=== PATIENT | female | born 1970 | race Caucasian/White ===

== ENCOUNTER 2016-06-18 18:40 | Emergency (ER) | payer BC ==
[~2016-06-18] VITALS: Ht 167.6 cm; Wt 54.2 kg
[~2016-06-18 18:40] MED LIST: IBS MEDICATION PO
[2016-06-18 18:44] VITALS: TEMP 36.3; Ht 167.6 cm; Wt 54.2 kg
[2016-06-18] MEDS ORDERED: CEFTRIAXONE SOD INJ 1 GM ADDVIAL IV STA (18:54)
[2016-06-18] MEDS ORDERED: ONDANSETRON INJ 2 MG/ML 2 ML VIAL IV STA (18:54)
[2016-06-18] MEDS ORDERED: KETOROLAC TROMETHAMINE 30 MG/ML VIAL IV STA (18:54)
[2016-06-18] MEDS ORDERED: SODIUM CHLORIDE 0.9% 1000ML 1,000 ML IV STA (18:54)
[2016-06-18] MEDS ORDERED: HYDROmorphone INJ 1 MG/ML SYR IV STA (18:54)
--- NOTE | 2016-06-18 18:59 | EMERGENCY ROOM VISIT NOTE ---
History Report prepared by Sulaiman: Radhika Rodriguez Under the Supervision of: Dr. Ric Fox M.D. First contact with patient: 18:48 Chief Complaint: FLANK PAIN Stated Complaint: FLANK PAIN, BLOOD IN URINE History of Present Illness The patient is a 45 year old female who presents to the Emergency Room with complaints of worsening right sided flank pain for the past couple of days. She states that today her pain has been constant and dull with occasional sharp pains. She rates her pain as a 6/10 in severity and it is worse with palpation. The patient went to a [id number] today and had a UA which revealed hematuria. She was started on Bactrim this evening and has had 1 dose. She did not take any other medications for her symptoms. She came to the ED for further evaluation. Source of History: patient Onset: a couple of days ago Position: other (right flank) Symptom Intensity: 6/10 Quality: sharp, dull Timing: constant, worsening Modifying Factors (Worsening): other (palpation) Associated Symptoms: + urinary symptoms (hematuria) Review of Systems See HPI for pertinent positives & negatives. A total of 10 systems reviewed and were otherwise negative. Past Medical & Surgical Medical Problems: (1) Interstitial cystitis (2) Stomach problems Family History Cancer Diabetes mellitus Heart disease Hypertension Kidney disease Kidney stones Social History Smoking Status: Former Smoker Marital Status: Housing Status: lives with significant other Occupation Status: employed Current/Historical Medications Scheduled Control Pills ( Control Pills), 1 TAB PO DAILY Levothyroxine Sodium (Synthroid), 88 MCG PO 6XWK Levothyroxine Sodium (Synthroid), 100 MCG PO MONDAYS Ondasetron Odt (Zofran Odt), 4 MG SL Q6H Scheduled PRN Oxycodone/Acetaminophen 5MG/325MG (Percocet 5MG/325MG), 1-2 TAB PO Q4H PRN for Pain Piroxicam (Piroxicam), 1 CAP PO Q4 PRN for Allergies Coded Allergies: Amoxicillin (Unverified Allergy, Severe, COLITIS, 09/18/15) Clavulanic Acid (Verified Allergy, Unknown, COLITIS, 09/18/15) Penicillins (Verified Allergy, Unknown, COLITIS, 09/18/15) Uncoded Allergies: BETALACTAMASEIN (Allergy, Unknown, COLITIS, 05/21/09) Physical Exam Vital Signs Date Time Temp Pulse Resp B/P Pulse Ox O2 Delivery O2 Flow Rate FiO2 06/18/16 20:03 86 16 105/64 06/18/16 19:12 104 18 108/73 97 Room Air 06/18/16 19:12 92 06/18/16 18:44 36.3 107 16 122/83 99 Room Air Physical Exam GENERAL: Patient is a healthy-appearing well-nourished 45 year old female. HEAD: Normocephalic atraumatic EYES: Ocular movements intact pupils equal and react to light OROPHARYNX mucous membranes are moist no exudates present no erythema or edema present NECK: Supple no nuchal rigidity CHEST: Good equal expansion LUNGS: Clear and equal to auscultation CARDIAC: Normal S1 and S2 ABDOMEN: Soft nontender no guarding BACK: Tender to the right lumbosacral area, no CVA tenderness EXTREMITIES: No pain upon palpation normal muscle strength in all groups no clubbing cyanosis or edema NEURO: Patient is following commands is answering questions appropriately. Alert and oriented x3 Cranial Nerves 2-12 grossly intact Medical Decision & Procedures ER Provider Diagnostic Interpretation: Radiology results as stated below per my review and radiologist interpretation: ABDOMEN AND PELVIS CT WITHOUT CONTRAST CT DOSE: 623.80 mGy.cm HISTORY: Flank pain Pt c/o Rt sided flank pain TECHNIQUE: Multiaxial CT images of the abdomen and pelvis were performed without the use of intravenous and oral contrast according to the standard department stone protocol. COMPARISON STUDY: 09/18/2015 FINDINGS: Lung bases are clear. Liver demonstrates a small hemangioma of the right hepatic lobe unchanged from the prior study. Gallbladder is negative for distention. Kidneys negative for calcification. There is no evidence for an obstructing urinary tract calculus. Bladder is midline. Bowel pattern is considered nonobstructive. Visualized components of the appendix are unremarkable. IMPRESSION: No acute process of the abdomen or pelvis Electronically signed by: Ashkan Medina M.D. 06/18/2016 7:54 PM Dictated Date/Time: 06/18/2016 7:47 PM Laboratory Results 06/18/16 19:00 Red Blood Count 4.28, Mean Corpuscular Volume 88.3, Mean Corpuscular Hemoglobin 31.1, Mean Corpuscular Hemoglobin Concent 35.2, Mean Platelet Volume 10.7, Neutrophils (%) (Auto) 63.6, Lymphocytes (%) (Auto) 28.9, Monocytes (%) (Auto) 6.6, Eosinophils (%) (Auto) 0.4, Basophils (%) (Auto) 0.3, Neutrophils # (Auto) 5.90, Lymphocytes # (Auto) 2.68, Monocytes # (Auto) 0.61, Eosinophils # (Auto) 0.04, Basophils # (Auto) 0.03 06/18/16 19:00 Test 06/18/16 19:00 06/18/16 19:15 White Blood Count 9.28 K/uL (4.8-10.8) Red Blood Count 4.28 M/uL (4.2-5.4) Hemoglobin 13.3 g/dL (12.0-16.0) Hematocrit 37.8 % (37-47) Mean Corpuscular Volume 88.3 fL (80-100) Mean Corpuscular Hemoglobin 31.1 pg (25-34) Mean Corpuscular Hemoglobin Concent 35.2 g/dl (32-36) Platelet Count 303 K/uL (130-400) Mean Platelet Volume 10.7 fL (7.4-10.4) Neutrophils (%) (Auto) 63.6 % Lymphocytes (%) (Auto) 28.9 % Monocytes (%) (Auto) 6.6 % Eosinophils (%) (Auto) 0.4 % Basophils (%) (Auto) 0.3 % Neutrophils # (Auto) 5.90 K/uL (1.4-6.5) Lymphocytes # (Auto) 2.68 K/uL (1.2-3.4) Monocytes # (Auto) 0.61 K/uL (0.11-0.59) Eosinophils # (Auto) 0.04 K/uL (0-0.5) Basophils # (Auto) 0.03 K/uL (0-0.2) RDW Standard Deviation 40.7 fL (36.4-46.3) RDW Coefficient of Variation 12.7 % (11.5-14.5) Immature Granulocyte % (Auto) 0.2 % Immature Granulocyte # (Auto) 0.02 K/uL (0.00-0.02) Anion Gap 11.0 mmol/L (3-11) Est Creatinine Clear Calc Drug Dose 68.3 ml/min Estimated GFR () 90.1 Estimated GFR (Non- 77.8 BUN/Creatinine Ratio 17.3 (10-20) Calcium Level 8.4 mg/dl (8.5-10.1) Total Bilirubin 0.5 mg/dl (0.2-1) Direct Bilirubin 0.1 mg/dl (0-0.2) Aspartate Amino Transf (AST/SGOT) 16 U/L (15-37) Alanine Aminotransferase (ALT/SGPT) 21 U/L (12-78) Alkaline Phosphatase 103 U/L (45-117) Total Protein 7.5 gm/dl (6.4-8.2) Albumin 3.8 gm/dl (3.4-5.0) Lipase 206 U/L (73-393) Urine Color YELLOW Urine Appearance CLEAR (CLEAR) Urine pH 6.5 (4.5-7.5) Urine Specific [place] 1.003 (1.000-1.030) Urine Protein NEG (NEG) Urine Glucose (UA) NEG (NEG) Urine Ketones NEG (NEG) Urine Occult Blood 3+ (NEG) Urine Nitrite NEG (NEG) Urine Bilirubin NEG (NEG) Urine Urobilinogen NEG (NEG) Urine Leukocyte Esterase NEG (NEG) Urine WBC (Auto) 1-5 /hpf (0-5) Urine RBC (Auto) >30 /hpf (0-4) Urine Hyaline Casts (Auto) 0 /lpf (0-5) Urine Epithelial Cells (Auto) 10-20 /lpf (0-5) Urine Bacteria (Auto) NEG (NEG) Labs reviewed by ED physician. Medications Administered Medications (Trade) Dose Ordered Sig/Ghassan Route Start Time Stop Time Status Last Admin Dose Admin Sodium Chloride (Nss 1000ml) 1,000 ml @ 999 mls/hr Q1H1M STAT IV 06/18/16 18:54 06/18/16 19:54 DC 06/18/16 19:10 999 MLS/HR Ketorolac Tromethamine (Toradol Inj) 30 mg NOW STAT IV 06/18/16 18:54 06/18/16 18:57 DC 06/18/16 19:09 30 MG Hydromorphone HCl (Dilaudid Inj) 0.5 mg NOW STAT IV 06/18/16 18:54 06/18/16 18:57 DC 06/18/16 19:09 0.5 MG Ondansetron HCl (Zofran Inj) 4 mg NOW STAT IV 06/18/16 18:54 06/18/16 18:57 DC 06/18/16 19:09 4 MG Ceftriaxone Sodium (Rocephin Inj) 1 gm NOW STAT IV 06/18/16 18:54 06/18/16 18:57 DC 06/18/16 19:08 1 GM Metoclopramide HCl (Reglan Inj) 10 mg NOW STAT IV 06/18/16 20:30 06/18/16 20:32 DC 06/18/16 20:32 10 MG ED Course 1847: Past medical records reviewed. The patient was evaluated in room A4B. A complete history and physical examination was performed. 1853: Rocephin 1 gm IV, Zofran 4 mg IV, Dilaudid 0.5 mg IV, Toradol 30 mg IV, NSS 1000 ml @ 999 mls/hr IV 1956: I reassessed the patient at this time. She is feeling better and resting comfortably. I discussed the results and treatment plan with the patient. I answered all pertaining questions that she had. She expressed understanding and verbalized agreement. The patient will be discharged home. Medical Decision Differential diagnosis: Etiologies such as renal colic, appendicitis, diverticulitis, mesenteric ischemia, aortic pathology, infections, inflammatory bowel disease, PUD, biliary pathology, UTI, as well as others were entertained. This is a 45-year-old female who was sent in by her primary care physician's office due to hematuria. The patient was already started on Bactrim and took her first pill at 5 PM this evening. I will note that she does not have an elevation in her white blood count is afebrile here. Serial abdominal examinations were performed on the patient in the emergency department and at no time did the patient exhibit a surgical abdomen. The patient was started on Rocephin in the emergency department and given Toradol Dilaudid for pain. She is also given Zofran and Reglan for nausea. Repeat examination revealed improvement patient's symptoms. I do believe that the patient is well enough to be discharged home. I asked that she continue taking her Percocet. Her CAT scan does not show any acute process. Patient and family were in agreement with the treatment plan. Impression Primary Impression: Hematuria Scribe Attestation The scribe's documentation has been prepared under my direction and personally reviewed by me in its entirety. I confirm that the note above accurately reflects all work, treatment, procedures, and medical decision making performed by me. Departure Information Dispostion Home / Self-Care Prescriptions Ondasetron Odt (ZOFRAN ODT) 4 Mg Tab 4 MG SL Q6H for Nausea, #6 TAB Prov: Ric Fox MD 06/18/16 Oxycodone/Acetaminophen 5MG/325MG (PERCOCET 5MG/325MG) Tab 1-2 TAB PO Q4H Y for Pain, #14 TAB Prov: Ric Fox MD 06/18/16 Referrals Rebeca Harmon, (PCP) Forms HOME CARE DOCUMENTATION FORM, IMPORTANT VISIT INFORMATION, School Instructions, Work Instructions Patient Instructions ED Hematuria, Hematuria Poss Causes, My [facility] Additional Instructions Continue taking Bactrim You received narcotic or benzodiazepene medication while in the emergency room today. Do not drive, operate heavy machinery, or drink alcohol under the influence of this medication. Take 600 mg Ibuprofen every 6 hours Take Percocet for breakthrough pain Culture results are usually available in approx 48 hours You have been examined and treated today on an emergency basis only. This is not a substitute for, or an effort to provide, complete comprehensive medical care. It is impossible to recognize and treat all injuries or illnesses in a single emergency department visit. It is therefore important that you follow up closely with Dr Harmon. Call as soon as possible for an appointment. Thank you for your time and consideration. I look forward to speaking with you again soon. Please don't hesitate to call us if you have any questions.
[2016-06-18 19:13] LABS: BASO % 0.3 %; BASO ABS # 0.03 K/uL (0-0.2); COMPLETE YES; EOS % 0.4 %; HEMATOCRIT 37.8 % (37-47); IG% 0.2 %; LYMPH % 28.9 %; LYMPH ABS # 2.68 K/uL (1.2-3.4); MEAN CELL VOLUME 88.3 fL (80-100); MEAN CORPUSCULAR HEMOGLOBIN 31.1 pg (25-34); MEAN CORPUSCULAR HGB CONC 35.2 g/dl (32-36); MEAN PLATELET VOLUME 10.7 fL (7.4-10.4); MONO % 6.6 %; NEUT % 63.6 %; PLATELET COUNT 303 K/uL (130-400); RED BLOOD COUNT 4.28 M/uL (4.2-5.4); WHITE BLOOD COUNT 9.28 K/uL (4.8-10.8)
[2016-06-18] MEDS ORDERED: LEVO100T PO (19:18)
[2016-06-18] MEDS ORDERED: LEVO88TA PO (19:18)
[2016-06-18] MEDS ORDERED: BCPILLS PO (19:18)
[2016-06-18] MEDS ORDERED: PIRO-104 PO (19:18)
[2016-06-18 19:32] LABS: BUN/CREATININE RATIO 17.3 (10-20); CALCIUM 8.4 mg/dl (8.5-10.1); CREATININE 0.9 mg/dl (0.60-1.20); POTASSIUM 3.7 mmol/L (3.5-5.1)
[2016-06-18 19:36] LABS: URINE APPEARANCE CLEAR (CLEAR); URINE BILIRUBIN NEG (NEG); URINE COLOR YELLOW; URINE NITRITE NEG (NEG); URINE PH 6.5 (4.5-7.5); URINE SPECIFIC GRAVITY 1.003 (1.000-1.030); UROBILINOGEN NEG (NEG); ZZUR CULT IF INDIC CLEAN CATCH NO
[2016-06-18 19:37] LABS: MANUAL MICROSCOPIC REQUIRED? NO; REVIEW REQ? NO
--- NOTE | 2016-06-18 19:55 | DIAGNOSTIC IMAGING REPORT ---
ABDOMEN AND PELVIS CT WITHOUT CONTRAST CT DOSE: 623.80 mGy.cm HISTORY: Flank pain Pt c/o Rt sided flank pain TECHNIQUE: Multiaxial CT images of the abdomen and pelvis were performed without the use of intravenous and oral contrast according to the standard department stone protocol. COMPARISON STUDY: 09/18/2015 FINDINGS: Lung bases are clear. Liver demonstrates a small hemangioma of the right hepatic lobe unchanged from the prior study. Gallbladder is negative for distention. Kidneys negative for calcification. There is no evidence for an obstructing urinary tract calculus. Bladder is midline. Bowel pattern is considered nonobstructive. Visualized components of the appendix are unremarkable. IMPRESSION: No acute process of the abdomen or pelvis Electronically signed by: Ashkan Medina M.D. 06/18/2016 7:54 PM Dictated Date/Time: 06/18/2016 7:47 PM
[2016-06-18] MEDS ORDERED: ONDA4TAB10 SL (20:03)
[2016-06-18] MEDS ORDERED: OXYC-57 PO (20:03)
[2016-06-18] MEDS ORDERED: METOCLOPRAMIDE HCL INJ 5 MG/ML 2 ML VIAL ONE (20:27)
[2016-06-18] MEDS ORDERED: METOCLOPRAMIDE HCL INJ 5 MG/ML 2 ML VIAL IV STA (20:30)
[2016-06-18] MEDS ORDERED: ONDANSETRON HOME PACK 4MG OD TAB PO ONE (20:30)
[2016-06-18 20:51] VITALS: BP 97/51; PULSE 84; O2SAT 99
== END 2016-06-18 20:52 | disposition home or self-care (01) ==
LOC: C.EDB 18:41 → C.EDA 20:52
DX: R31.9 Hematuria, unspecified (principal)

== ENCOUNTER → 2016-06-29 | Outpatient (CLI) | payer BC ==
[~2016-06-29] MED LIST changes: +BCPILLS PO; -IBS MEDICATION PO; +LEVO100T PO; +LEVO88TA PO; +ONDA4TAB10 SL; +OXYC-57 PO; +PIRO-104 PO
== END | disposition home or self-care (01) ==
LOC: C.LABSPEC 17:02
PROVIDERS: ATTEND Nurse Practitioner Family
DX: R31.9 Hematuria, unspecified (principal)

== ENCOUNTER → 2016-07-06 | Outpatient (CLI) | payer BC | END | disposition home or self-care (01) | LOC: C.LABBC 12:04 | PROVIDERS: ATTEND Nurse Practitioner Family | DX: R31.9 Hematuria, unspecified (principal) ==

== ENCOUNTER 2016-11-08 10:58 | Observation (INO) | payer BC ==
[~2016-11-08] VITALS: Ht 167.6 cm; Wt 65.0 kg
[2016-11-08 11:51] LABS: HEMATOCRIT 40.5 % (37-47); MEAN CELL VOLUME 90.2 fL (80-100); MEAN CORPUSCULAR HEMOGLOBIN 30.1 pg (25-34); MEAN CORPUSCULAR HGB CONC 33.3 g/dl (32-36); PLATELET COUNT 228 K/uL (130-400); RED BLOOD COUNT 4.49 M/uL (4.2-5.4); WHITE BLOOD COUNT 6.71 K/uL (4.8-10.8)
[2016-11-08 11:55] LABS: INR 0.9 (0.9-1.1); PROTHROMBIN TIME (PATIENT) 9.9 SECONDS (9.0-12.0)
[2016-11-08 11:58] LABS: ALT/SGPT 21 U/L (12-78); BLOOD UREA NITROGEN 12 mg/dl (7-18); BUN/CREATININE RATIO 14.4 (10-20); CALCIUM 8.8 mg/dl (8.5-10.1); CARBON DIOXIDE 28 mmol/L (21-32); CHLORIDE 108 mmol/L (98-107); CREATININE 0.84 mg/dl (0.60-1.20); GLUCOSE 101 mg/dl (70-99); POTASSIUM 3.9 mmol/L (3.5-5.1); SODIUM 142 mmol/L (136-145)
--- NOTE | 2016-11-08 12:00 | EMERGENCY ROOM VISIT NOTE ---
History Report prepared by Sulaiman: David Robb Under the Supervision of: Dr. Brandon Elkins M.D. First contact with patient: 10:59 Chief Complaint: CHEST PAIN Stated Complaint: CHEST PAIN Nursing Triage Summary: pt reports sudden onset of right sided chest pain she states it feels really sharp pt reports no blood thinners and does not take aspirin daily History of Present Illness The patient is a 46 year old female who presents to the Emergency Room with complaints of resolving left-sided chest pain that started around an hour and a half ago. She says that she felt fine before the pain came on, and she was just sitting at work when the chest pain started. The patient states that the pain was really intense and sharp, and had a sudden onset. She says that the intense pain and heaviness lasted for around 45 minutes, and now the pain is less intense but still there. She rates the intense pain as a 4 out of 10 in severity , and she rates the pain currently as a 2 out of 10. The patient adds that she had a bit of nausea and a hot flash episode, in addition to a bit of neck pain when the chest pain started. She denies any shortness of breath, back pain, shoulder pain, or jaw pain. The patient says that she has not taken any medications for the pain. She states that she does not exercise or do anything that increases her heart rate, and she has not had any recent problems with walking up stairs. The patient notes that her symptoms do not worsen with movement or deep breaths. She says that the only medication she takes regularly is Synthroid. The patient adds that her father had a quadruple bypass at the age of 65. She denies any personal heart or lung problems. She does not smoke. The patient says that she has a history of heart skipping, but no chest pain. She has no history of heartburn, but she has a history of reflux. The patient does not have a history of diabetes, hypertension, or hyperlipidemia. Source of History: patient Onset: An hour and a half ago Position: chest (left) Symptom Intensity: 4/10, now 2/10 Quality: sharp Timing: other (resolving, sudden onset) Associated Symptoms: + neck pain, + nausea, No SOB, No back pain Note: Associated symptoms: Hot flash. Denies shoulder pain or jaw pain. Review of Systems See HPI for pertinent positives & negatives. A total of 10 systems reviewed and were otherwise negative. Past Medical & Surgical Medical Problems: (1) Acquired hypothyroidism (2) Colitis (3) H/O migraine (4) HLA-B27 spondyloarthropathy (5) Interstitial cystitis Surgical Problems: (1) H/O total thyroidectomy Family History Cancer Diabetes mellitus Heart disease Hypertension Kidney disease Kidney stones Social History Smoking Status: Former Smoker Marital Status: Housing Status: lives with significant other Occupation Status: employed Current/Historical Medications Scheduled Levothyroxine Sodium (Synthroid), 88 MCG PO 6XWK Levothyroxine Sodium (Synthroid), 100 MCG PO MONDAYS Scheduled PRN Piroxicam (Piroxicam), 20 MG PO Q4 PRN for Allergies Coded Allergies: Amoxicillin (Unverified Allergy, Severe, COLITIS, 11/08/16) Clavulanic Acid (Verified Allergy, Unknown, COLITIS, 11/08/16) Penicillins (Verified Allergy, Unknown, COLITIS, 11/08/16) Physical Exam Vital Signs Date Time Temp Pulse Resp B/P (MAP) Pulse Ox O2 Delivery O2 Flow Rate FiO2 11/08/16 12:52 80 16 118/65 98 Room Air 11/08/16 12:16 82 16 111/75 100 Room Air 11/08/16 11:49 98 Room Air 11/08/16 11:49 98 Room Air 11/08/16 11:49 80 11/08/16 11:30 98 Room Air 11/08/16 11:03 36.8 96 18 111/74 98 Room Air Physical Exam GENERAL: Patient is in no acute distress. HEENT: No acute trauma, normocephalic atraumatic, mucous membranes moist, no nasal congestion, no scleral icterus. NECK: No stridor, no adenopathy, no meningismus, trachea is midline. LUNGS: Clear to auscultation bilaterally, no wheeze, no rhonchi, breath sounds equal. CHEST: Non-tender chest wall. HEART: Without murmurs gallops or rubs, regular rate and rhythm. ABDOMEN: Soft, nontender, bowel sounds positive, no hernias, no peritonitis. EXTREMITIES: No cyanosis or edema, full range of motion of all the joints without pain or difficulty, no signs for acute trauma. NEUROLOGIC: Oriented x 3, no acute motor or sensory deficits, no focal weakness. SKIN: No rash, no jaundice, no diaphoresis. Medical Decision & Procedures ER Provider Diagnostic Interpretation: X-ray results as stated below per interpretation by me and the radiologist: CHEST ONE VIEW PORTABLE CLINICAL HISTORY: right sided chest pain dyspnea COMPARISON STUDY: No previous studies for comparison. FINDINGS: The bones soft tissues and hemidiaphragms are normal. The cardiomediastinal silhouette is normal. The lungs are clear. The pulmonary vasculature is normal. IMPRESSION: Negative chest. The above report was generated using voice recognition software. It may contain grammatical, syntax or spelling errors. Electronically signed by: Ashkan Medina M.D. 11/08/2016 12:12 PM Dictated Date/Time: 11/08/2016 12:12 PM Laboratory Results 11/08/16 11:24 11/08/16 11:24 Test 11/08/16 11:24 11/08/16 12:15 Red Blood Count 4.49 M/uL (4.2-5.4) Mean Corpuscular Volume 90.2 fL (80-100) Mean Corpuscular Hemoglobin 30.1 pg (25-34) Mean Corpuscular Hemoglobin Concent 33.3 g/dl (32-36) RDW Standard Deviation 42.0 fL (36.4-46.3) RDW Coefficient of Variation 12.9 % (11.5-14.5) Mean Platelet Volume 11.0 fL (7.4-10.4) Prothrombin Time 9.9 SECONDS (9.0-12.0) Prothromb Time International Ratio 0.9 (0.9-1.1) Activated Partial Thromboplast Time 25.9 SECONDS (21.0-31.0) Partial Thromboplastin Ratio 1.0 Anion Gap 6.0 mmol/L (3-11) Est Creatinine Clear Calc Drug Dose 79.1 ml/min Estimated GFR () 97.3 Estimated GFR (Non- 83.9 BUN/Creatinine Ratio 14.4 (10-20) Calcium Level 8.8 mg/dl (8.5-10.1) Total Bilirubin 0.4 mg/dl (0.2-1) Aspartate Amino Transf (AST/SGOT) 12 U/L (15-37) Alanine Aminotransferase (ALT/SGPT) 21 U/L (12-78) Alkaline Phosphatase 99 U/L (45-117) Total Creatine Kinase 52 U/L (26-192) Total Protein 7.7 gm/dl (6.4-8.2) Albumin 3.8 gm/dl (3.4-5.0) Globulin 3.9 gm/dl (2.5-4.0) Albumin/Globulin Ratio 1.0 (0.9-2) Bedside Troponin I < 0.030 ng/ml (0-0.045) Laboratory results reviewed by me. Medications Administered Medications (Trade) Dose Ordered Sig/Ghassan Route Start Time Stop Time Status Last Admin Dose Admin Nitroglycerin (Nitroglycerin 2% Oint) 0.5 inch NOW STAT EXT 11/08/16 12:11 11/08/16 12:12 DC 11/08/16 12:16 0.5 INCH Aspirin (Aspirin Chew) 324 mg NOW STAT PO 11/08/16 12:11 11/08/16 12:12 DC 11/08/16 12:16 324 MG ECG Indication: chest pain Rate (beats per minute): 90 Rhythm: normal sinus Findings: no acute ischemic change, no ectopy ED Course 1205: The patient was evaluated in room A10. A complete history and physical exam was performed. The patient verbally expressed understanding and agreement of the treatment plan. The patient will be evaluated for further treatment. 1211: Ordered Aspirin Chew 324 mg PO, Nitroglycerin 2% Oint 0.5 inch EXT. 1218: I discussed the patient with Norma Miramontes - she will evaluate the patient for further treatment. 1315: Ordered Nitrostat Tab 0.4 mg SL PRN, Zofran Inj 4 mg IV PRN, Tylenol Tab 650 mg PO PRN. Medical Decision Differential diagnoses considered include NV, angina, aortic dissection, PE, musculoskeletal pain, reflux. There is no leukocytosis or concerning anemia. No significant electrolyte abnormality, kidney failure or hepatitis. There is no coagulopathy. EKG shows a normal sinus rhythm with a rate of 90, no acute ischemia. Cardiac enzyme testing times one is not consistent with acute cardiac injury. Chest x-ray does not show pneumonia, mediastinal widening or CHF. Patient was given oral aspirin and Nitropaste. She presents with chest pain which went to her shoulder. She has a strong family history of cardiac disease. She still has some mild chest pain here in the department, the pain is not reproducible on exam. Further cardiac workup was felt warranted. I did speak to the patient and case specialist. The on-call hospitalist was consulted. Medication Reconcilliation Current Medication List: was personally reviewed by me Blood Pressure Screening Patient's blood pressure: Normal blood pressure Consults Time Called: 1215 Consulting Physician: Norma Miramontes Returned Call: 1218 I discussed the patient with Norma Miramontes - she will evaluate the patient for further treatment. Impression Primary Impression: Precordial chest pain Scribe Attestation The scribe's documentation has been prepared under my direction and personally reviewed by me in its entirety. I confirm that the note above accurately reflects all work, treatment, procedures, and medical decision making performed by me. Departure Information Dispostion Being Evaluated By Hospitalist Referrals Rebeca Harmon DO (PCP) Patient Instructions My [facility]
[2016-11-08 12:03] LABS: ALKALINE PHOSPHATASE 99 U/L (45-117); AST/SGOT 12 U/L (15-37)
[2016-11-08] MEDS ORDERED: ASPIRIN 81 MG CHEW PO STA (12:11)
[2016-11-08] MEDS ORDERED: NITROGLYCERIN OINT 2% 1GM PACKET EXT STA (12:11)
--- NOTE | 2016-11-08 12:14 | DIAGNOSTIC IMAGING REPORT ---
CHEST ONE VIEW PORTABLE CLINICAL HISTORY: right sided chest pain dyspnea COMPARISON STUDY: No previous studies for comparison. FINDINGS: The bones soft tissues and hemidiaphragms are normal. The cardiomediastinal silhouette is normal. The lungs are clear. The pulmonary vasculature is normal. IMPRESSION: Negative chest. The above report was generated using voice recognition software. It may contain grammatical, syntax or spelling errors. Electronically signed by: Ashkan Medina M.D. 11/08/2016 12:12 PM Dictated Date/Time: 11/08/2016 12:12 PM
[2016-11-08] MEDS ORDERED: ONDANSETRON INJ 2 MG/ML 2 ML VIAL IV PRN (13:15)
[2016-11-08] MEDS ORDERED: ACETAMINOPHEN 325 MG TAB PO PRN (13:15)
[2016-11-08] MEDS ORDERED: NITROGLYCERIN 0.4 MG SL PER TAB CHARGE SL PRN (13:15)
[2016-11-08 13:38] VITALS: O2SAT 98; Ht 167.6 cm; Wt 65.0 kg
[2016-11-08] MEDS ORDERED: IV FLUIDS COMPLETED PRN (13:45)
--- NOTE | 2016-11-08 13:58 | Progress Note ---
Progress Note Date of Service Nov 08, 2016. Progress Note Patient was seen and evaluated with ADRI Reynoso. Patient comes in with c/o left sided chest pain started today, while she was sitting at work. Described as pressure like/heaviness, radiating to jaw, associated with some nausea, sweating. No c/o cough, fever, chills. EXAM: Gen- AAOX3, no distress, bit anxious Neck- No bruits Lungs- AEBE, no wheezing, rales Heart- S1, S2 normal, no murmurs; No reproducible tenderness Ext- No edema Labs reviewed Imaging- reviewed ASSESSMENT AND PLAN: LEFT SIDED CHEST PAIN- Described as chest heaviness, radiated to jaw, associated with some nausea, sweating. Risk factors: Family hx positive for premature CAD- father- bypass at age 65 -Initial EKG- NSR, no acute ischemic changed, Troponin x 1 negative -ASA 325 mg given. Start Aspirin 81 mg daily -Will repeat EKG, Troponin x 3, Lipid panel. If two sets of troponin negative, for exercise stress echocardiogram in AM HYPOTHYROIDISM -On synthroid DISPOSITION Observation telemetry
[2016-11-08] MEDS ORDERED: CYCLOBENZAPRINE HCL 10 MG TAB PO PRN (14:15)
--- NOTE | 2016-11-08 14:38 | History and Physical ---
History & Physical Date & Time of Service: Nov 08, 2016 at 14:10 Chief Complaint: Chest Pain Primary Care Physician: Rebeca Harmon DO History of Present Illness Source: patient Patient is a 46yo F with a PMH of acquired hypothyroidism s/p complete thyroidectomy who presents with chest pain that started this morning. Patient was sitting at her desk when she started to experience a L sided "heavy feeling " on her chest that radiated to L shoulder and jaw that was not exacerbated with movement. Pain was a severe 8/10 for 45 minutes and then decreased to a 2/ 10 pain without intervention. Associated symptoms included nausea and a "hot flash" feeling. Denies h/o heart disease, HTN or DM. Has + family hx of heart disease with her father having a quadruple bypass by age 65. Has experienced acid reflux in the past but states that this feeling of heaviness is very different. Does endorse being under a lot of emotional stress,especially this week, due to family problems. In ED, received nitro paste but it did not make chest heaviness any better or worse. Denies fever, chills, cough, diaphoresis, CP, SOB or nausea/vomiting. Past Medical/Surgical History Medical Problems: (1) Acquired hypothyroidism Status: Chronic (2) Colitis Status: Chronic (3) H/O migraine Status: Chronic (4) HLA-B27 spondyloarthropathy Status: Chronic (5) Interstitial cystitis Status: Chronic Family History Cancer Diabetes mellitus Heart disease FATHER Hypertension MOTHER Kidney disease Kidney stones Social History Smoking Status: Former Smoker (Quit 21 years ago.) Alcohol Use: socially (2-3 glasses of wine/month) Drug Use: none Marital Status: Occupational Status: employed Multi-Drug Resistant Organisms History of MDRO: No Allergies Coded Allergies: Amoxicillin (Unverified Allergy, Severe, COLITIS, 11/08/16) Clavulanic Acid (Verified Allergy, Unknown, COLITIS, 11/08/16) Penicillins (Verified Allergy, Unknown, COLITIS, 11/08/16) Home Medications Scheduled Levothyroxine Sodium (Synthroid), 88 MCG PO 6XWK Levothyroxine Sodium (Synthroid), 100 MCG PO MONDAYS Scheduled PRN Piroxicam (Piroxicam), 20 MG PO Q4 PRN for Review of Systems Ten systems reviewed and negative except as noted in the HPI. Physical Exam Vital Signs Date Time Temp Pulse Resp B/P (MAP) Pulse Ox O2 Delivery O2 Flow Rate FiO2 11/08/16 13:38 98 Room Air 11/08/16 12:52 80 16 118/65 98 Room Air 11/08/16 12:16 82 16 111/75 100 Room Air 11/08/16 11:49 98 Room Air 11/08/16 11:49 98 Room Air 11/08/16 11:49 80 11/08/16 11:30 98 Room Air 11/08/16 11:03 36.8 96 18 111/74 98 Room Air General Appearance: WD/WN, + mild distress (Conversational but anxious.) Head: normocephalic Eyes: normal inspection, PERRL ENT: normal ENT inspection, hearing grossly normal Neck: supple, no adenopathy, trachea midline Respiratory/Chest: chest non-tender, lungs clear, normal breath sounds, no respiratory distress, no accessory muscle use Cardiovascular: regular rate, rhythm, no edema, no gallop, no JVD, no murmur, normal peripheral pulses Abdomen/GI: normal bowel sounds, non tender, soft, no organomegaly Extremities/Musculoskelatal: normal inspection, no calf tenderness, normal capillary refill, no pedal edema Neurologic/Psych: no motor/sensory deficits, alert, normal mood/affect, oriented x 3 Skin: normal color, warm/dry, no rash Diagnostics Laboratory Results Results Past 24 Hours Test 11/08/16 11:24 11/08/16 12:15 Range/Units White Blood Count 6.71 4.8-10.8 K/uL Red Blood Count 4.49 4.2-5.4 M/uL Hemoglobin 13.5 12.0-16.0 g/dL Hematocrit 40.5 37-47 % Mean Corpuscular Volume 90.2 80-100 fL Mean Corpuscular Hemoglobin 30.1 25-34 pg Mean Corpuscular Hemoglobin Concent 33.3 32-36 g/dl RDW Standard Deviation 42.0 36.4-46.3 fL RDW Coefficient of Variation 12.9 11.5-14.5 % Platelet Count 228 130-400 K/uL Mean Platelet Volume 11.0 7.4-10.4 fL Prothrombin Time 9.9 9.0-12.0 SECONDS Prothromb Time International Ratio 0.9 0.9-1.1 Activated Partial Thromboplast Time 25.9 21.0-31.0 SECONDS Partial Thromboplastin Ratio 1.0 Sodium Level 142 136-145 mmol/L Potassium Level 3.9 3.5-5.1 mmol/L Chloride Level 108 98-107 mmol/L Carbon Dioxide Level 28 21-32 mmol/L Anion Gap 6.0 3-11 mmol/L Blood Urea Nitrogen 12 7-18 mg/dl Creatinine 0.84 0.60-1.20 mg/dl Est Creatinine Clear Calc Drug Dose 79.1 ml/min Estimated GFR () 97.3 Estimated GFR (Non- 83.9 BUN/Creatinine Ratio 14.4 10-20 Random Glucose 101 70-99 mg/dl Calcium Level 8.8 8.5-10.1 mg/dl Total Bilirubin 0.4 0.2-1 mg/dl Aspartate Amino Transf (AST/SGOT) 12 15-37 U/L Alanine Aminotransferase (ALT/SGPT) 21 12-78 U/L Alkaline Phosphatase 99 45-117 U/L Total Creatine Kinase 52 26-192 U/L Creatine Kinase MB < 0.5 0.5-3.6 ng/ml Creatine Kinase MB Ratio 0-3.0 Total Protein 7.7 6.4-8.2 gm/dl Albumin 3.8 3.4-5.0 gm/dl Globulin 3.9 2.5-4.0 gm/dl Albumin/Globulin Ratio 1.0 0.9-2 Bedside Troponin I < 0.030 0-0.045 ng/ml CXR normal Normal EKG Impression Assessment and Plan Patient is a 46yo F with a PMH of acquired hypothyroidism s/p complete thyroidectomy who presents with chest pain that started this morning. 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 Harmon Dispo: Tele obs overnight. Re-evaluate after stress test in AM. Level of Care Telemetry Advanced Directives Existing Living Will: No Existing Power of Generator Assembler: No Resuscitation Status FULL RESUSCITATION VTE Prophylaxis VTE Risk Assessment Done? Y/N: Yes Risk Level: Low Given or contraindicated: SCD's Social Service Consult None Apply
[2016-11-08 16:58] VITALS: BP 105/57; PULSE 95; TEMP 36.7; O2SAT 98
[2016-11-08] MEDS ORDERED: TRAMADOL HCL 50 MG TAB PO PRN (19:15)
[2016-11-08 20:25] VITALS: BP 102/61; PULSE 76; TEMP 36.8; O2SAT 98
[2016-11-09] VITALS: BP 108/56; PULSE 77; TEMP 36.7; O2SAT 96
[2016-11-09 04:00] VITALS: BP 98/49; PULSE 79; TEMP 36.8; O2SAT 97
[2016-11-09 07:50] LABS: CHOLESTEROL/HDL RATIO 3.2
[2016-11-09 08:15] VITALS: BP 105/55; PULSE 72; TEMP 36.7; O2SAT 100
[2016-11-09 08:51] LABS: HEMATOCRIT 39.1 % (37-47); MEAN CELL VOLUME 90.3 fL (80-100); MEAN CORPUSCULAR HEMOGLOBIN 29.6 pg (25-34); MEAN CORPUSCULAR HGB CONC 32.7 g/dl (32-36); MEAN PLATELET VOLUME 10.9 fL (7.4-10.4); PLATELET COUNT 233 K/uL (130-400); RED BLOOD COUNT 4.33 M/uL (4.2-5.4); WHITE BLOOD COUNT 6.57 K/uL (4.8-10.8)
[2016-11-09] MEDS ORDERED: ASPIRIN 81 MG ECTAB PO SCH (09:00)
[2016-11-09 09:12] LABS: BUN/CREATININE RATIO 23.2 (10-20); CALCIUM 8.7 mg/dl (8.5-10.1); CREATININE 0.74 mg/dl (0.60-1.20); POTASSIUM 4.5 mmol/L (3.5-5.1)
[2016-11-09] MEDS ORDERED: PERFLUTREN LIPID MICROSPHERE (DEFINITY) IV ONE (10:16)
--- NOTE | 2016-11-09 10:50 | EXERCISE STRESS ECHO ---
*NOTICE TO RECEIVING [employer] This information is strictly Confidential and protected under [place] law. [place] law prohibits you from making any further disclosure of this information unless further disclosure is expressly permitted by the written consent of the person to whom it pertains or is authorized by law. A general authorization for the release of medical or other information is not sufficient for this purpose. Hospital accepts no responsibility if the information is made available to any other person, INCLUDING THE PATIENT. Interpretation Summary * Name: DAILY FREEMAN Study Date: 11/09/2016 08:50 AM BP: 111/60 mmHg * Patient Location: [facility] HR: 99 * : 1970 (M/d/yyyy) Gender: Female Height: 66 in * Age: 46 yrs Ethnicity: [place] Weight: 145 lb * Ordering Physician: Angeles May * Referring Physician: Self, Referred * Performed By: Linda Dunbar RDCS * * Reason For Study: Chest pain * BSA: 1.7 m2 * -- Conclusions -- * Nonischemic exercise stress echocardiogram. * Occasional PVC's with exercise, no sustained arrhythmias. * Normal HR and BP response to exercise. * At rest, normal LV chamber size and wall thickness. * Normal LV systolic function, EF 60-65%. * No segmental left ventricular wall motion abnormalities are noted. * Normal diastolic function. * Mild bileaflet mitral valve prolapse with trace mitral regurgitation. Procedure Details * ECHOEX, CPT #[id number] * ECHO DOPPLER, CPT #[id number] * ECHO COLOR FLOW, CPT #[id number] * A contrast injection of Definity was performed to improve assessment of LV function. * Contrast was injected into an intravenous site in the right arm. * One vial of Definity ultrasound contrast was diluted in normal saline to a total volume of 10 ml. A total of '4' ml of solution was administered during imaging. * Lot # [id number] of Definity utilized for procedure. * Expiration date DEC 01. * The attending nurse who injected the contrast agent was Sally Wyatt RN. Left Ventricle * The left ventricle is normal in size. * There is normal left ventricular wall thickness. * Left ventricular systolic function is normal. * No segmental left ventricular wall motion abnormalities are noted. * Ejection Fraction = 60-65%. * Resting wall motion: Normal. Stress wall motion: Appropriate increase in Left ventricular systolic function and decrease in cavity size. No stress induced segmental wall motion abnormalities. Right Ventricle * The right ventricular cavity size is normal (basal dimension <4.2 cm in right ventricular apical 4-chamber view). * The right ventricular systolic function is normal as assessed by tricuspid annular plane systolic excursion (TAPSE) (normal >1.5 cm). Atria * The left atrial size is normal. * Right atrial size is normal. * No ASD detected; PFO is not assessed. Mitral Valve * There is mild mitral valve prolapse. * There is no mitral valve stenosis. * There is trace mitral regurgitation. Tricuspid Valve * The tricuspid valve is normal in structure and function. Aortic Valve * The aortic valve is normal in structure and function. Pulmonic Valve * The pulmonary valve is not well seen, but the Doppler examination is normal without significant regurgitation or stenosis. Great Vessels * The aortic root and proximal ascending aorta are normal sized. Pericardium * There is no pericardial effusion. Stress Parameters * Normal baseline electrocardiogram. * Stress ECG: No ST changes. No arrhythmias. * No arrhythmia were noted with stress. * The stress portion of this study was personally supervised by the undersigned interpreting physician. * Rest heart rate was '99' BPM. * Rest blood pressure was '111/60' * Maximum heart rate achieved was 184 bpm. * Maximum heart rate was 105 % of maximum age-predicted heart rate. * Maximum blood pressure was '181/79' * Total exercise time was '9:31' * Maximum exercise MET level achieved was '10.90' METS * Maximum treadmill speed was '4.20' miles per hour. * Maximum treadmill elevation was '16.00'% grade. * Exercise was terminated due to 'achieving target heart rate' MMode 2D Measurements and Calculations IVSd 0.82 cm LVIDd 4.4 cm LVIDs 3.0 cm LVPWd 0.88 cm IVS/LVPW 0.93 FS 33.0 % EDV(Teich) 88.1 ml ESV(Teich) 33.6 ml EF(Teich) 61.8 % EDV(cubed) 85.7 ml ESV(cubed) 25.7 ml EF(cubed) 70.0 % LV mass(C)d 118.5 grams LV mass(C)dI 67.9 grams/m\S\2 SV(Teich) 54.5 ml SI(Teich) 31.2 ml/m\S\2 SV(cubed) 60.0 ml SI(cubed) 34.4 ml/m\S\2 Ao root diam 3.2 cm Ao root area 8.1 cm\S\2 ACS 2.0 cm LA dimension 2.2 cm asc Aorta Diam 3.1 cm LA/Ao 0.69 LVOT diam 2.0 cm LVOT area 3.2 cm\S\2 LVAd ap4 19.0 cm\S\2 LVLd ap4 6.9 cm EDV(MOD-sp4) 42.0 ml EDV(sp4-el) 44.5 ml LVAs ap4 11.0 cm\S\2 LVLs ap4 5.5 cm ESV(MOD-sp4) 17.8 ml ESV(sp4-el) 18.6 ml EF(MOD-sp4) 57.7 % EF(sp4-el) 58.3 % LVAd ap2 24.6 cm\S\2 LVLd ap2 7.1 cm EDV(MOD-sp2) 72.3 ml EDV(sp2-el) 71.7 ml LVAs ap2 12.9 cm\S\2 LVLs ap2 5.2 cm ESV(MOD-sp2) 26.6 ml ESV(sp2-el) 26.9 ml EF(MOD-sp2) 63.2 % EF(sp2-el) 62.5 % LVLd %diff 3.1 % EDV(MOD-bp) 54.3 ml LVLs %diff -5.71 % ESV(MOD-bp) 22.3 ml EF(MOD-bp) 58.9 % SV(MOD-sp4) 24.2 ml SI(MOD-sp4) 13.9 ml/m\S\2 SV(MOD-sp2) 45.7 ml SI(MOD-sp2) 26.2 ml/m\S\2 SV(MOD-bp) 32.0 ml SI(MOD-bp) 18.3 ml/m\S\2 SV(sp4-el) 25.9 ml SI(sp4-el) 14.8 ml/m\S\2 SV(sp2-el) 44.8 ml SI(sp2-el) 25.7 ml/m\S\2 Doppler Measurements and Calculations MV E max jacqueline 53.4 cm/sec MV A max jacqueline 47.1 cm/sec MV E/A 1.1 MV dec time 0.19 sec Ao V2 max 93.9 cm/sec Ao max PG 3.5 mmHg Ao max PG (full) 0.87 mmHg TIA(V,A) 2.8 cm\S\2 TIA(V,D) 2.8 cm\S\2 LV V1 max PG 2.7 mmHg LV V1 max 81.5 cm/sec PA V2 max 72.7 cm/sec PA max PG 2.1 mmHg PA acc slope 347.7 cm/sec\S\2 PA acc time 0.15 sec PA pr(Accel) 12.5 mmHg
--- NOTE | 2016-11-09 11:18 | Progress Note ---
Medicine Progress Note Date & Time of Visit: Nov 09, 2016 at 11:12. (Angeles May, P.A.-C.) Subjective Doing well today. States that stress test went well. Denies CP, SOB, nausea/ vomiting. (Angeles May, P.A.-C.) Objective Last 8 Hrs Date Time Temp Pulse Resp B/P (MAP) Pulse Ox O2 Delivery O2 Flow Rate FiO2 11/09/16 08:15 36.7 72 18 105/55 (72) 100 Room Air 11/09/16 04:00 36.8 79 16 98/49 (65) 97 Room Air 11/09/16 04:00 Room Air Physical Exam: General Appearance: WD/WN, no apparent distress Head: normocephalic, atraumatic Eyes: normal inspection, PERRL ENT: hearing grossly normal, pharynx normal Neck: supple, no JVD, no adenopathy Respiratory/Chest: lungs clear to auscultation. No wheezes, rales or rhonci. No respiratory distress or accessory muscle use Cardiovascular: regular rate, rhythm, no murmur, normal peripheral pulses Abdomen/GI: normal bowel sounds, soft, non-tender to palpation Extremities/Musculoskelatal: normal inspection, no calf tenderness, normal capillary refill, no pedal edema Neurologic/Psych: alert, normal mood/affect, oriented x 3 Skin: normal color, warm/dry Laboratory Results: Last 24 Hours Test 11/08/16 11:24 11/08/16 12:15 11/08/16 18:00 11/08/16 18:34 White Blood Count 6.71 K/uL Red Blood Count 4.49 M/uL Hemoglobin 13.5 g/dL Hematocrit 40.5 % Mean Corpuscular Volume 90.2 fL Mean Corpuscular Hemoglobin 30.1 pg Mean Corpuscular Hemoglobin Concent 33.3 g/dl RDW Standard Deviation 42.0 fL RDW Coefficient of Variation 12.9 % Platelet Count 228 K/uL Mean Platelet Volume 11.0 fL Prothrombin Time 9.9 SECONDS Prothromb Time International Ratio 0.9 Activated Partial Thromboplast Time 25.9 SECONDS Partial Thromboplastin Ratio 1.0 Sodium Level 142 mmol/L Potassium Level 3.9 mmol/L Chloride Level 108 mmol/L Carbon Dioxide Level 28 mmol/L Anion Gap 6.0 mmol/L Blood Urea Nitrogen 12 mg/dl Creatinine 0.84 mg/dl Est Creatinine Clear Calc Drug Dose 79.1 ml/min Estimated GFR () 97.3 Estimated GFR (Non- 83.9 BUN/Creatinine Ratio 14.4 Random Glucose 101 mg/dl Calcium Level 8.8 mg/dl Total Bilirubin 0.4 mg/dl Aspartate Amino Transf (AST/SGOT) 12 U/L Alanine Aminotransferase (ALT/SGPT) 21 U/L Alkaline Phosphatase 99 U/L Total Creatine Kinase 52 U/L Creatine Kinase MB < 0.5 ng/ml 0.7 ng/ml Creatine Kinase MB Ratio Total Protein 7.7 gm/dl Albumin 3.8 gm/dl Globulin 3.9 gm/dl Albumin/Globulin Ratio 1.0 Bedside Troponin I < 0.030 ng/ml Troponin I < 0.015 ng/ml Test 11/09/16 00:00 11/09/16 00:21 11/09/16 06:31 Creatine Kinase MB Ratio Creatine Kinase MB 0.7 ng/ml Troponin I < 0.015 ng/ml White Blood Count 6.57 K/uL Red Blood Count 4.33 M/uL Hemoglobin 12.8 g/dL Hematocrit 39.1 % Mean Corpuscular Volume 90.3 fL Mean Corpuscular Hemoglobin 29.6 pg Mean Corpuscular Hemoglobin Concent 32.7 g/dl RDW Standard Deviation 42.0 fL RDW Coefficient of Variation 12.7 % Platelet Count 233 K/uL Mean Platelet Volume 10.9 fL Sodium Level 142 mmol/L Potassium Level 4.5 mmol/L Chloride Level 108 mmol/L Carbon Dioxide Level 30 mmol/L Anion Gap 4.0 mmol/L Blood Urea Nitrogen 17 mg/dl Creatinine 0.74 mg/dl Est Creatinine Clear Calc Drug Dose 89.8 ml/min Estimated GFR () 113.4 Estimated GFR (Non- 97.8 BUN/Creatinine Ratio 23.2 Random Glucose 82 mg/dl Calcium Level 8.7 mg/dl Triglycerides Level 98 mg/dl Cholesterol Level 188 mg/dl HDL Cholesterol 58 mg/dl LDL Cholesterol, Calculated 110 mg/dl VLDL Cholesterol, Calculated 20 mg/dl Cholesterol/HDL Ratio 3.2 (Angeles May, P.A.-C.) Assessment & Plan Chest pain: non-cardiac -R/o ACS; risk factors include + family history (father) -Work up: Initial troponin negative, EKG: normal sinus rhythm, CXR: normal, cardiac enzymes normal, repeat EKG in AM normal, fasting lipid panel normal -Stress echo without inducible ischemia. 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 Harmon Dispo: Ready for discharge Current Inpatient Medications: Current Inpatient Medications Medications (Trade) Dose Ordered Sig/Ghassan Route Start Time Stop Time Status Last Admin Dose Admin Acetaminophen (Tylenol Tab) 650 mg Q4H PRN PO 11/08/16 13:15 12/08/16 13:14 11/08/16 15:39 650 MG Ondansetron HCl (Zofran Inj) 4 mg Q6H PRN IV 11/08/16 13:15 12/08/16 13:14 Nitroglycerin (Nitrostat Tab) 0.4 mg UD PRN SL 11/08/16 13:15 12/08/16 13:14 Miscellaneous (Iv Fluids Completed) 1 ea PRN PRN N/A 11/08/16 13:45 11/08/17 13:44 Aspirin (Ecotrin Tab) 81 mg QAM PO 11/09/16 09:00 12/09/16 08:59 11/09/16 09:00 81 MG Cyclobenzaprine HCl (Flexeril Tab) 10 mg TID PRN PO 11/08/16 14:15 12/08/16 14:14 Tramadol HCl (Ultram Tab) 50 mg Q4H PRN PO 11/08/16 19:15 12/08/16 19:14 11/08/16 19:46 50 MG (Angeles May ., P.A.-C.) ATTENDING ADDENDUM care coordinated with ARIEL May please refer to her notes for full details, I agree with her notes patient seen and examined, records reviewed by myself as well on exam, patient seen after stress test report nausea and vomiting yellow fluids no abdominal pain, attributes to anxiety denies chest pain, dyspnea, palpitations, dizziness no other symptoms given nancy [place] re-evaluated at 6pm, doing better, in good spirits states nausea resolved no other symptoms states she is ready for discharge today VS noted and reviewed oriented x 3 , not in distress, speaks in sentences with no effort nor accessory muscle use normal rate, regular rhythm, no murmurs clear breath sounds bilaterally non distended, soft, nontender no bipedal edema, erythema, warmth no neuro deficits tsh 0.07 Ft4 1.28 ASSESSMENT/PLAN> CHEST PAIN, ACUTE CORONARY SYNDROME RULED OUT negative stress test ff up with PCP in 1 week HISTORY OF THYROIDECTOMY advised to ff up with Endo in 1 week other diagnoses and plan of care as per ARIEL May's notes Kana Nelson MD (Kana Nelson MD)
--- NOTE | 2016-11-09 11:44 | Discharge Instructions ---
Discharge Instructions Date of Service Nov 09, 2016. Admission Reason for Admission: Chest Pain Discharge Discharge Diagnosis / Problem: CHEST PAIN, ACUTE CORONARY SYNDROME RULED OUT Discharge Goals Goal(s): Diagnostic testing, Therapeutic intervention Activity Recommendations Activity Limitations: as noted below (INCREASE ACTIVITY GRADUALLY TOLERATED) Lifting Limitations: until after follow-up appointment Exercise/Sports Limitations: until after follow-up appointment . Instructions / Follow-Up Instructions / Follow-Up Please call your Primary Care Physician or return to ER immediately if with recurrence of symptoms. The stress test was negative but showed a mild bileaflet mitral valve prolapse. This does not require any urgent treatment but rather a maintenance echo each year with your PCP or an out-patient machine printer. Please follow up with Dr. Harmon on November 16 at 11:15am. Follow up with the Nonprofit Fundraiser in 1 week. Current Hospital Diet Patient's current hospital diet: AHA Diet (Heart Healthy) Discharge Diet Recommended Diet: AHA Diet (Heart Healthy) Procedures Procedures Performed: Stress Test Pending Studies Studies pending at discharge: no Laboratory Results Lipid Panel Test 11/09/16 06:31 Range/Units Triglycerides Level 98 0-150 mg/dl Cholesterol Level 188 0-200 mg/dl HDL Cholesterol 58 mg/dl Cholesterol/HDL Ratio 3.2 LDL Cholesterol, Calculated 110 mg/dl Medical Emergencies . Who to Call and When: Medical Emergencies: If at any time you feel your situation is an emergency, please call 911 immediately. . Non-Emergent Contact Non-Emergency issues call your: Primary Care Provider Call Non-Emergent contact if: you have a fever, your pain is not controlled, your pain is worsening, you have any medication questions . Past History Medical & Surgical History: (1) Interstitial cystitis (2) Acquired hypothyroidism (3) HLA-B27 spondyloarthropathy (4) H/O migraine (5) Colitis . "Provider Documentation" section prepared by Angeles May. . VTE Core Measure Inpt VTE Proph given/why not?: SCD's
[2016-11-09 11:47] VITALS: BP 117/72; PULSE 103; TEMP 36.6; O2SAT 97
--- NOTE | 2016-11-09 11:57 | Discharge Summary ---
Discharge Summary Date of Service Nov 09, 2016. Discharge Summary Admission Date: Nov 08, 2016 at 13:05 Discharge Date: Nov 09, 2016 Discharge Disposition: Home Principal Diagnosis: CHEST PAIN, ACUTE CORONARY SYNDROME RULED OUT Secondary Diagnoses/Problems: Mild mitral valve prolapse Acquired hypothyroidism HLA B27 spondylarthropathy H/o Migraines Procedures: Exercise stress echo performed on 11/09/16. "Non-ischemic exercise ST echo. Occasional PVCs with exercise. Mild bileaflet mitral valve prolapse with trace mitral regurgitation." Interpretation Summary * Name: DAILY FREEMAN Study Date: 11/09/2016 08:50 AM BP: 111/60 mmHg * Patient Location: [facility] HR: 99 * : 1970 (M/d/yyyy) Gender: Female Height: 66 in * Age: 46 yrs Ethnicity: [place] Weight: 145 lb * Ordering Physician: Angeles May * Referring Physician: Self, Referred * Performed By: Linda Dunbar RDCS * * Reason For Study: Chest pain * BSA: 1.7 m2 * -- Conclusions -- * Nonischemic exercise stress echocardiogram. * Occasional PVC's with exercise, no sustained arrhythmias. * Normal HR and BP response to exercise. * At rest, normal LV chamber size and wall thickness. * Normal LV systolic function, EF 60-65%. * No segmental left ventricular wall motion abnormalities are noted. * Normal diastolic function. * Mild bileaflet mitral valve prolapse with trace mitral regurgitation. Procedure Details * ECHOEX, CPT #[id number] * ECHO DOPPLER, CPT #[id number] * ECHO COLOR FLOW, CPT #[id number] * A contrast injection of Definity was performed to improve assessment of LV function. * Contrast was injected into an intravenous site in the right arm. * One vial of Definity ultrasound contrast was diluted in normal saline to a total volume of 10 ml. A total of '4' ml of solution was administered during imaging. * Lot # [id number] of Definity utilized for procedure. * Expiration date DEC 01. * The attending nurse who injected the contrast agent was Sally Wyatt RN. Left Ventricle * The left ventricle is normal in size. * There is normal left ventricular wall thickness. * Left ventricular systolic function is normal. * No segmental left ventricular wall motion abnormalities are noted. * Ejection Fraction = 60-65%. * Resting wall motion: Normal. Stress wall motion: Appropriate increase in Left ventricular systolic function and decrease in cavity size. No stress induced segmental wall motion abnormalities. Right Ventricle * The right ventricular cavity size is normal (basal dimension <4.2 cm in right ventricular apical 4-chamber view). * The right ventricular systolic function is normal as assessed by tricuspid annular plane systolic excursion (TAPSE) (normal >1.5 cm). Atria * The left atrial size is normal. * Right atrial size is normal. * No ASD detected; PFO is not assessed. Mitral Valve * There is mild mitral valve prolapse. * There is no mitral valve stenosis. * There is trace mitral regurgitation. Tricuspid Valve * The tricuspid valve is normal in structure and function. Aortic Valve * The aortic valve is normal in structure and function. Pulmonic Valve * The pulmonary valve is not well seen, but the Doppler examination is normal without significant regurgitation or stenosis. Great Vessels * The aortic root and proximal ascending aorta are normal sized. Pericardium * There is no pericardial effusion. Stress Parameters * Normal baseline electrocardiogram. * Stress ECG: No ST changes. No arrhythmias. * No arrhythmia were noted with stress. * The stress portion of this study was personally supervised by the undersigned interpreting physician. * Rest heart rate was '99' BPM. * Rest blood pressure was '111/60' * Maximum heart rate achieved was 184 bpm. * Maximum heart rate was 105 % of maximum age-predicted heart rate. * Maximum blood pressure was '181/79' * Total exercise time was '9:31' * Maximum exercise MET level achieved was '10.90' METS * Maximum treadmill speed was '4.20' miles per hour. * Maximum treadmill elevation was '16.00'% grade. * Exercise was terminated due to 'achieving target heart rate' Pending Studies/Follow-Up: Please refer to hospital course below. Medication Reconciliation Continued Medications: Levothyroxine Sodium (Synthroid) 88 Mcg Tab 88 MCG PO 6XWK, TAB TAKE 6 DAYS A WEEK, DO NOT TAKE ON MONDAYS. Levothyroxine Sodium (Synthroid) 100 Mcg Tab 100 MCG PO MONDAYS, TAB Piroxicam (Piroxicam) 20 Mg Cap 20 MG PO Q4 PRN for for 30 Days, CAP 1 Refill Admission Information HPI (per Admitting provider): Patient is a 46yo F with a PMH of acquired hypothyroidism s/p complete thyroidectomy who presents with chest pain that started this morning. Patient was sitting at her desk when she started to experience a L sided "heavy feeling " on her chest that radiated to L shoulder and jaw that was not exacerbated with movement. Pain was a severe 8/10 for 45 minutes and then decreased to a 2/ 10 pain without intervention. Associated symptoms included nausea and a "hot flash" feeling. Denies h/o heart disease, HTN or DM. Has + family hx of heart disease with her father having a quadruple bypass by age 65. Has experienced acid reflux in the past but states that this feeling of heaviness is very different. Does endorse being under a lot of emotional stress,especially this week, due to family problems. In ED, received nitro paste but it did not make chest heaviness any better or worse. Denies fever, chills, cough, diaphoresis, CP, SOB or nausea/vomiting. Physical Exam (per Admitting): General Appearance: WD/WN, + mild distress (Conversational but anxious.) Head: normocephalic Eyes: normal inspection, PERRL ENT: normal ENT inspection, hearing grossly normal Neck: supple, no adenopathy, trachea midline Respiratory/Chest: chest non-tender, lungs clear, normal breath sounds, no respiratory distress, no accessory muscle use Cardiovascular: regular rate, rhythm, no edema, no gallop, no JVD, no murmur , normal peripheral pulses Abdomen/GI: normal bowel sounds, non tender, soft, no organomegaly Extremities/Musculoskelatal: normal inspection, no calf tenderness, normal capillary refill, no pedal edema Neurologic/Psych: no motor/sensory deficits, alert, normal mood/affect, oriented x 3 Skin: normal color, warm/dry, no rash Hospital Course CHEST PAIN, ACUTE CORONARY SYNDROME RULED OUT -R/o ACS; risk factors include + family history (father) -Work up: Initial troponin negative, EKG: normal sinus rhythm, CXR: normal, cardiac enzymes normal, repeat EKG in AM normal, fasting lipid panel normal -Stress echo without inducible ischemia. 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 Discharge Instructions Discharge Instructions Date of Service Nov 09, 2016. Admission Reason for Admission: Chest Pain Discharge Discharge Diagnosis / Problem: Non-cardiac Chest Pain Discharge Goals Goal(s): Decrease discomfort, Improve function Activity Recommendations Activity Limitations: resume your previous activity . Instructions / Follow-Up Instructions / Follow-Up You were admitted with chest pain that was found to be non-cardiac in nature. It is likely that your chest pain was caused by stress/anxiety. The stress test was negative but showed a mild bileaflet mitral valve prolapse. This does not require any urgent treatment but rather a maintenance echo each year with your PCP or an out-patient tool distributor. Start taking aspirin 81mg daily, which can be purchased over the counter. You have a follow-up appointment with Dr. Harmon on November 16 at 11: 15am. Current Hospital Diet Patient's current hospital diet: AHA Diet (Heart Healthy) Discharge Diet Recommended Diet: AHA Diet (Heart Healthy) Pending Studies Studies pending at discharge: no Laboratory Results Lipid Panel Test 11/09/16 06:31 Range/Units Triglycerides Level 98 0-150 mg/dl Cholesterol Level 188 0-200 mg/dl HDL Cholesterol 58 mg/dl Cholesterol/HDL Ratio 3.2 LDL Cholesterol, Calculated 110 mg/dl Medical Emergencies . Who to Call and When: Medical Emergencies: If at any time you feel your situation is an emergency, please call 911 immediately. . Non-Emergent Contact Non-Emergency issues call your: Primary Care Provider . Past History Medical & Surgical History: (1) Interstitial cystitis (2) Acquired hypothyroidism (3) HLA-B27 spondyloarthropathy (4) H/O migraine (5) Colitis . Additional Copies To Rebeca Harmon,
[2016-11-09 13:29] LABS: THYROID STIMULATING HORMONE 0.07 uIu/ml (0.300-4.500)
[2016-11-09 16:30] VITALS: BP 104/70; PULSE 87; TEMP 36.7; O2SAT 98
[2016-11-09 18:22] VITALS: BP 104/70; PULSE 87; TEMP 36.7; O2SAT 98
== END 2016-11-09 18:52 | disposition home or self-care (01) ==
LOC: C.EDB 10:59 → C.2E 13:05 → CANRESERV 13:17 → ENRESERV 13:17
PROVIDERS: ADMIT Internal Medicine; ATTEND Internal Medicine
DX: R07.2 Precordial pain (principal); Z90.710 Acquired absence of both cervix and uterus; Z83.3 Family history of diabetes mellitus; Z82.49 Family history of ischemic heart disease and other diseases of the circulatory system; Z87.891 Personal history of nicotine dependence; Z79.82 Long term (current) use of aspirin; E89.0 Postprocedural hypothyroidism; N30.10 Interstitial cystitis (chronic) without hematuria; Z84.1 Family history of disorders of kidney and ureter

== ENCOUNTER → 2017-01-15 | Outpatient (CLI) | payer BC ==
[~2017-01-15] MED LIST changes: -BCPILLS PO; -ONDA4TAB10 SL; -OXYC-57 PO
--- NOTE | 2017-01-15 15:44 | MAMMOGRAPHY REPORT ---
BILATERAL DIGITAL SCREENING MAMMOGRAM TOMOSYNTHESIS WITH CAD: 01/15/2017 CLINICAL HISTORY: Routine screening. Patient has no complaints. TECHNIQUE: Breast tomosynthesis in addition to standard 2D mammography was performed. Current study was also evaluated with a Computer Aided Detection (CAD) system. COMPARISON: Comparison is made to exams dated: 04/08/2014 mammogram, 06/27/2013 mammogram, 06/20/2011 m ammogram, and 10/25/2001 mammogram - [facility]. BREAST COMPOSITION: The tissue of both breasts is heterogeneously dense, which may obscure small mas ses. FINDINGS: There is an asymmetry in the far posterior, superior right breast, only seen on the MLO vi ew. Although this could represent normal fibroglandular tissue, additional spot compression tomosynt hesis, exaggerated lateral CC tomosynthesis views and possibly ultrasound are recommended. There are scattered benign-appearing punctate and round microcalcifications bilaterally. No other bubba picious mass, architectural distortion or cluster of microcalcifications is seen. IMPRESSION: ACR BI-RADS CATEGORY 0: INCOMPLETE EVALUATION: NEED ADDITIONAL IMAGING EVALUATION The asymmetry in the superior, posterior right breast needs additional evaluation. The patient will be called to schedule an appointment. Approximately 10% of breast cancers are not detected with mammography. A negative mammographic report should not delay biopsy if a clinically suggestive mass is present. Sarah Johnson M.D. ay/:01/15/2017 15:07:23 Restorative Care Technician: Tiffany OSUNA(Matt)(Ana)(BD), [facility] letter sent: Addl Imaging 0 BI-RADS Code: ACR BI-RADS Category 0: Incomplete Evaluation: Need Additional Imaging Evaluation
== END | disposition home or self-care (01) ==
LOC: C.MAMM 14:32
PROVIDERS: ATTEND Obstetrics & Gynecology
DX: Z12.31 Encounter for screening mammogram for malignant neoplasm of breast (principal); N64.89 Other specified disorders of breast

== ENCOUNTER → 2017-02-02 | Outpatient (CLI) | payer BC ==
[~2017-02-02] MED LIST changes: +SUMA50TA15 PO
== END | disposition home or self-care (01) ==
LOC: C.PAPS 16:22
PROVIDERS: ATTEND Obstetrics & Gynecology
DX: Z01.419 Encounter for gynecological examination (general) (routine) without abnormal findings (principal)

== ENCOUNTER → 2017-03-19 | Outpatient (CLI) | payer BC ==
[~2017-03-19] MED LIST changes: -LEVO100T PO
--- NOTE | 2017-03-19 10:17 | DIAGNOSTIC IMAGING REPORT ---
SOFT TISS HEAD/NECK-THYROID HISTORY: Thyroid carcinoma C73 Thyroid [id number] COMPARISON: None. FINDINGS: No significant residual thyroid tissue. Patient is status post total thyroidectomy. No prior exams for comparison. There are several small shotty nodes involving the mid cervical region bilaterally. On the right these measure from 4 to 7 mm. On the left these measure from 4 to 9 mm. Maximum linear dimension potentially is slightly larger in isolated single dimension measurements this does not reflect the accurate volume of the nodes in question. It is recommended that old films be made available for comparison. IMPRESSION: 1. Status post total thyroidectomy. 2. Several small shotty nodes in the cervical regions bilaterally which may simply be reactive. 3. Is recommended that old films initially be made available for comparison The above report was generated using voice recognition software. It may contain grammatical, syntax or spelling errors. Electronically signed by: Ashkan Medina M.D. 03/19/2017 10:15 AM Dictated Date/Time: 03/19/2017 10:11 AM
== END | disposition home or self-care (01) ==
LOC: C.ULTR 09:35
PROVIDERS: ATTEND Internal Medicine Endocrinology, Diabetes & Metabolism
DX: C73 Malignant neoplasm of thyroid gland (principal); E89.0 Postprocedural hypothyroidism; R59.0 Localized enlarged lymph nodes

== ENCOUNTER → 2017-03-19 | Outpatient (CLI) | payer BC ==
--- NOTE | 2017-03-19 15:18 | MAMMOGRAPHY REPORT ---
UNILATERAL RIGHT DIGITAL DIAGNOSTIC MAMMOGRAM TOMOSYNTHESIS AND TARGETED RIGHT ULTRASOUND: 03/19/2017 CLINICAL HISTORY: 46-year-old woman called back from screening mammography for an asymmetry in the fa r superior and posterior right breast on the MLO view. Patient has a personal history of thyroid can cer and family history of breast cancer and lymphoma. TECHNIQUE: Spot compression 2-D and tomosynthesis right MLO, and a repeat with more lateral tissue i ncluded as well as a 2-D and tomosynthesis right CC L view were obtained. COMPARISON: Comparison is made to exams dated: 01/15/2017 mammogram, 04/08/2014 ultrasound, 4 mammogram, 06/27/2013 ultrasound, 06/27/2013 mammogram, and 06/20/2011 mammogram - [facility]. BREAST COMPOSITION: The tissue of the right breast is heterogeneously dense, which may obscure small masses. FINDINGS: There is effacement of the asymmetry in the superior and far posterior right breast on the MLO view with the spot compression MLO views of the right breast. No evidence of architectural dist ortion or persistent mass on the tomosynthesis images. 2 benign lymph nodes are noted on the repeat spot compression MLO view. Further evaluation with ultrasound was performed in the superior right br east. Targeted ultrasound performed throughout the superior right breast demonstrates numerous subcentimete r anechoic benign simple cysts. The largest is noted in the 12:00 right breast, 2 cm from the nipple , measuring 4.3 mm. However, there is an indeterminate hypoechoic solid versus cystic rounded, parti ally circumscribed mass in the 10:00 right breast, 1 cm from the nipple, measuring 4.4 x 3.1 x 4.4 mm . Another ill-defined hypoechoic taller than wide lesion possibly representing a mass or prominent f at lobule is identified in the 1:00 right breast, 1 cm from the nipple, measuring 3.5 x 3.9 x 3.8 mm. Both of these noncystic lesions are indeterminate, warranting definitive characterization with an u ltrasound-guided core biopsy. IMPRESSION: ACR BI-RADS CATEGORY 4: SUSPICIOUS, TARGETED ULTRASOUND ACR BI-RADS CATEGORY 4: SUSPICIO US 1. Ultrasound-guided core biopsy 2 is recommended in the right breast 10:00 and 1:00 axes for indet erminate solid appearing subcentimeter masses identified on ultrasound. 2. It is unclear if either of these lesions correspond to a recently described asymmetry in the supe rior posterior breast, as this effaced with additional supplemental mammographic and tomosynthesis im ages, suggesting it most likely represented incompletely imaged glandular tissue in the posterior asp ect of the right breast. Pending benign pathology results, would recommend follow-up right diagnosti c tomosynthesis mammograms to ensure stability in 6 months. These results and recommendations were discussed with the patient at the time of the exam. Approximately 10% of breast cancers are not detected with mammography. A negative mammographic report should not delay biopsy if a clinically suggestive mass is present. Sarah Johnson M.D. ay/:03/19/2017 12:30:43 Shelf Drier Operator: Drea CHIU)(Ana), [facility] letter sent: Abnormal 4/5 BI-RADS Code: ACR BI-RADS Category 4: Suspicious Ultrasound BI-RADS: ACR BI-RADS Category 4: Suspici ous
== END | disposition home or self-care (01) ==
LOC: C.MAMM 08:23
PROVIDERS: ATTEND Obstetrics & Gynecology
DX: N64.9 Disorder of breast, unspecified (principal); N63.10 Unspecified lump in the right breast, unspecified quadrant

== ENCOUNTER → 2017-03-22 | Outpatient (CLI) | payer BC ==
--- NOTE | 2017-03-22 13:50 | Discharge Instructions ---
Discharge Instructions Procedure Procedure Date: Mar 22, 2017. Reason for visit: Two R Breast Masses. Discharge Discharge Date: Mar 22, 2017. Discharge Diagnosis: status post breast biopsy Instructions Activity Recommendations: Additional Limitations (see below) Return to School/Work: no limitations Recommended Home Diet: No Limitations Provider Instructions: ACTIVITY RECOMMENDATIONS: * No lifting, pushing, pulling or exercising the affected side for three days. RETURN TO SCHOOL/WORK: * You may return to work/school after the procedure, but do not perform any strenuous activities for 24 to 48 hours. MEDICATIONS: * Tylenol (two 325 mg) every four to six hours if needed for mild pain (if not allergic to Tylenol). DIET: * Resume previous diet. SPECIAL CARE INSTRUCTIONS: * Keep biopsy site dry for 24 hours. May shower after 24 hours, but do not soak (bathe) incision. * May remove Tegaderm (plastic patch) tomorrow AFTER showering. * Leave the steri-strips on for one week. Allow the steri-strips to fall off by themselves. If not off after one week, you may remove them. You may place a Bandaid crosswise over the strips, if desired. * Apply ice 10 minutes on and 10 minutes off as needed. * Wear a bra at bedtime to sleep more comfortably for 2-3 days. * Your referring physician should have the results after approximately 5 to 7 business days. * Call for unusual bleeding, fever, drainage, etc or if you have any questions call during normal business hours or after hours call Dr Riley, . FOLLOW UP VISIT: Follow-up with Referring Physician as scheduled. Allergies Coded Allergies: Amoxicillin (Unverified Allergy, Severe, COLITIS, 11/08/16) Clavulanic Acid (Verified Allergy, Unknown, COLITIS, 11/08/16) Penicillins (Verified Allergy, Unknown, COLITIS, 11/08/16) Mireille Vela Recommendations: Call your doctor if: * Temperature above 101 degrees * Pain not relieved by pain medicine ordered * There is increased drainage or redness from any incision * You have any unanswered questions or concerns. Your Doctors Instructions noted above were prepared by provider Rain Riley. Patient Signature Section: Patient Instructions Signature Page Kyung Braun Patient (or Guardian) Signature/Date: I have read and understand the instructions given to me by my caregivers. Caregiver/RN/Doctor Signature/Date: The above-named patient and/or guardian has received patient instructions on this date. + Original Patient Signature Page (only) stays with chart. Please make copy for patient.
--- NOTE | 2017-03-22 14:34 | MAMMOGRAPHY REPORT ---
ULTRASOUND GUIDED BIOPSY RIGHT BREAST: 03/22/2017 CLINICAL HISTORY: Right 1:00 breast mass. PATIENT CONSENT: The procedure, risks and benefits were discussed with the patient and informed writt en consent was obtained. A timeout was performed immediately prior to the procedure. PROCEDURE DESCRIPTION: With ultrasound guidance, aseptic technique, and lidocaine as the local anesth etic (1% lidocaine to anesthetize the skin and 1% lidocaine with epinephrine to anesthetize the deepe r tissues), the mass of concern in the right 1:00 breast was sampled 4 times with a 14-gauge Achieve biopsy needle. Immediately thereafter, with ultrasound guidance, aseptic technique, and lidocaine a s the local anesthetic, a metallic localizer clip was placed at the biopsy site. Direct pressure was applied to the site immediately post procedure and hemostasis was achieved. Postprocedure unilatera l mammograms were performed to confirm clip placement. The patient tolerated the procedure without c omplication. She was given wound care instructions. The specimens were sent to pathology for analysi s. COMPARISON: Comparison is made to exams dated: 03/19/2017 mammogram, 03/19/2017 ultrasound, 01/15/2017 mammogram, 04/08/2014 ultrasound, 04/08/2014 mammogram, and 06/27/2013 ultrasound - [facility]. IMPRESSION: ULTRASOUND GUIDED BIOPSY Ultrasound-guided core needle biopsy of the right 1:00 breast mass, with clip placement. The patient will receive pathology results from her referring provider. Rain Riley M.D. /:03/22/2017 13:56:08 Nuclear Auxiliary Operator: Sheri HERNANDEZR)(Ana), [facility]
--- NOTE | 2017-03-22 14:35 | MAMMOGRAPHY REPORT ---
ULTRASOUND GUIDED BIOPSY RIGHT BREAST: 03/22/2017 CLINICAL HISTORY: Right 10:00 breast mass. PATIENT CONSENT: The procedure, risks and benefits were discussed with the patient and informed writt en consent was obtained. A timeout was performed immediately prior to the procedure. PROCEDURE DESCRIPTION: With ultrasound guidance, aseptic technique, and lidocaine as the local anesth etic (1% lidocaine to anesthetize the skin and 1% lidocaine with epinephrine to anesthetize the deepe r tissues), the mass of concern in the right 10:00 breast was sampled 4 times with a 14-gauge Achieve biopsy needle. Immediately thereafter, with ultrasound guidance, aseptic technique, and lidocaine as the local anesthetic, a metallic localizer clip was placed at the biopsy site. Direct pressure wa s applied to the site immediately post procedure and hemostasis was achieved. Postprocedure unilater al mammograms were performed to confirm clip placement. The patient tolerated the procedure without complication. She was given wound care instructions. The specimens were sent to pathology for analys is. COMPARISON: Comparison is made to exams dated: 03/22/2017 ultrasound biopsy, 03/19/2017 mammogram, 03/19/2017 ultrasound, and 01/15/2017 mammogram - [facility]. IMPRESSION: ULTRASOUND GUIDED BIOPSY Ultrasound guided core needle biopsy of the right 10:00 breast mass, with clip placement. The patien t will receive pathology results from her referring provider. Rain Riley M.D. /:03/22/2017 13:57:41 Specimen Accessioner: Sheri OSUNA(R)(Ana), [facility]
--- NOTE | 2017-03-22 14:35 | MAMMOGRAPHY REPORT ---
UNILATERAL RIGHT DIGITAL DIAGNOSTIC MAMMOGRAM TOMOSYNTHESIS: 03/22/2017 CLINICAL HISTORY: Status post 2 right breast biopsies. TECHNIQUE: Breast tomosynthesis in addition to standard 2D mammography was performed. Post procedur al right CC and ML tomosynthesis images including C views were obtained. COMPARISON: Comparison is made to exams dated: 03/22/2017 ultrasound biopsy, 03/19/2017 mammogram, 03/19/2017 ultrasound, and 01/15/2017 mammogram - [facility]. BREAST COMPOSITION: The tissue of the right breast is heterogeneously dense, which may obscure small masses. FINDINGS: A new ribbon-shaped biopsy marker clip is seen in the expected location of the biopsied ri ght 1:00 breast mass. A wing-shaped biopsy marker clip is seen in the expected location of the biops ied right 10:00 breast mass. No significant postbiopsy hematoma is seen. IMPRESSION: POST PROCEDURE IMAGING FOR MARKER PLACEMENT New biopsy marker clips status post right breast biopsies. Pathology results are pending. Approximately 10% of breast cancers are not detected with mammography. A negative mammographic report should not delay biopsy if a clinically suggestive mass is present. Rain Riley M.D. /:03/22/2017 14:11:20 Buck Swamper: Sheri OSUNA(Matt)(Ana), [facility] BI-RADS Code: Post Procedure Imaging For Marker Placement
== END | disposition home or self-care (01) ==
LOC: C.MAMM 12:48
PROVIDERS: ATTEND Obstetrics & Gynecology
DX: D24.1 Benign neoplasm of right breast (principal)